=== PATIENT | female | born 1995 | race Two or more races ===

== ENCOUNTER 2021-06-02 18:16 | Inpatient (IN) ==
[2021-06-02 21:17] LABS: Hematocrit (blood only) 35.7 % (37-47); Hemoglobin 12.2 g/dL (12.0-16.0); Immature Granulocytes # (auto) 0.04 K/uL (0.00-0.02); Immature Granulocytes % (auto) 0.3 %; Lymphocytes # (auto) 1.28 K/uL (1.2-3.4); Lymphocytes % (auto) 8.4 %; Mean Corpuscular Hemoglobin 32.3 pg (25-34); Mean Corpuscular Hgb Conc 34.2 g/dL (32-36); Mean Corpuscular Volume 94.4 fL (80-100); Mean Platelet Volume 9.3 fL (7.4-10.4); Monocytes # (auto) 0.54 K/uL (0.11-0.59); Monocytes % (auto) 3.5 %; Neutrophils # (auto) 13.39 K/uL (1.4-6.5); Neutrophils % (auto) 87.8 %; Platelet Count 503 K/uL (130-400); RDW Coefficient of Variation 13.1 % (11.5-14.5); Red Blood Count 3.78 M/uL (4.2-5.4); White Blood Count 15.25 K/uL (4.8-10.8)
[2021-06-02 21:43] LABS: Alanine Aminotransferase 34 U/L (7-52); Albumin Level 3.6 gm/dl (3.4-5.0); Alkaline Phosphatase 299 U/L (34-104); Anion Gap 11 (3-11); Aspartate Aminotransferase 30 U/L (13-39); BUN Creatinine Ratio 24.6 (10-20); Bilirubin,Total 0.4 mg/dl (0.2-1.0); Blood Urea Nitrogen 16 mg/dl (6-23); Calcium 8.5 mg/dl (8.5-10.1); Carbon Dioxide 23 mmol/L (21-32); Chloride 101 mmol/L (98-107); Est GFR (Non-African American) 123.4 ml/min; Globulin 3.5 gm/dl (2.5-4.0); Glucose 102 mg/dl (70-99(Fasting)); Lipase 19 U/L (11-82); Potassium 3.3 mmol/L (3.5-5.1); Sodium 135 mmol/L (136-145); Total Protein 7.1 gm/dl (6.0-8.3)
[2021-06-02] MEDS ORDERED: ONDANSETRON INJ 2 MG/ML 2 ML VIAL IV STA (21:48)
[2021-06-02] MEDS ORDERED: MoRPHine SULFATE 4 MG/ML 1 ML CARP\\VIAL IV PRN (21:48)
--- NOTE | 2021-06-02 21:52 | Emergency Department Note ---
History of Present Illness General Chief complaint: Abdominal Pain Stated complaint: ABDOMINAL PAIN Time Seen by Provider: 06/02/21 21:39 History of Present Illness Maximum Pain Intensity: 5 This is a 26-year-old Portuguese-speaking female presenting to the emergency department for evaluation of lower abdominal pain that began yesterday. The discomfort is primarily suprapubic and nonradiating. She does not have fevers or chills. No chest pain, chest tightness, or shortness of breath. She denies chance of and is without history of abdominal surgery. She states she is on her menses. She rates her discomfort a 5/10. She last ate yesterday. She has not taken anything [id number] for symptoms. Home Medications Medication Instructions Recorded Confirmed Type No Known Home Medications 06/02/21 06/02/21 History Allergies Allergy/AdvReac Type Severity Reaction Status Date / Time No Known Allergies Allergy Verified 06/02/21 22:06 Past Med/Surg History Medical History (Updated 06/02/21 @ 23:53 by Jonathan Kerns PA-C) No chronic diseases present Surgical History (Updated 06/02/21 @ 21:51 by Jonathan Kerns PA-C) No significant past surgical history Social History Smoking Status: Never smoker Feels Safe at Home: Yes Review of Systems A total of 10 systems reviewed and were otherwise negative Physical Exam Vital Signs Vital Signs - 24 hr 06/02/21 18:38 Temperature 36.8 C Temperature Source Temporal Artery Scan Pulse Rate 87 Pulse Rhythm Regular Pulse Strength Normal Respiratory Rate 20 Respiratory Effort / Characteristics Non-Labored Spontaneous Respiratory Depth Normal Respiratory Pattern Regular Blood Pressure 127/86 Blood Pressure Mean 99 Blood Pressure Position Sitting Pulse Oximetry 100 Oxygen Delivery Method Room Air Sepsis Recent Fever Within 48 Hours No Sepsis New/Unexplained Change in Mental Status N/A Sepsis Action Taken by Nursing No Action Required VITALS: Vitals are noted on the nurse's note and reviewed by myself. Vital signs stable. GENERAL: Well-developed, well-nourished, female who appears mildly uncomfortable on presentation. HEART: Regular rate and rhythm without murmurs gallops or rubs. LUNGS: Clear to auscultation bilaterally without wheezes, rales or rhonchi. No retractions or accessory muscle use. ABDOMEN: Positive normal bowel sounds x 4. Soft with suprapubic tenderness. No rebound or guarding. No CVA tenderness. MUSCULOSKELETAL: No muscle atrophy, erythema, or edema noted. Full range of motion in all extremities. Course Administered Medications Ibuprofen (Ibuprofen 600 Mg Tab) 600 mg PO Q4H PRN PRN Reason: Pain/KIM/Cramping/Fever Stop: 07/02/21 23:34 Last Admin: 06/02/21 23:40 Dose: 600 mg Documented by: [id number] Discontinued Medications Oxytocin (Oxytocin 30 Units/500ml Nss) Confirm Administered Dose 30 units .ROUTE .STK-MED ONE Stop: 06/02/21 23:07 Last Admin: 06/02/21 23:36 Dose: 30 units Documented by: [id number] Medical Decision Making Differential Diagnosis Differential diagnosis: Etiologies such as biliary colic, cholecystitis, hepatitis, pancreatitis, cardiac disease, pancreatitis, gastritis, peptic ulcer disease, appendicitis, cystitis, diverticulitis, mesenteric ischemia, inflammatory bowel disease, ileus, bowel obstruction, testicular/adnexal torsion, aortic pathology, shingles, as well as others were considered Laboratory Data Result diagrams: 06/02/21 23:14 06/02/21 20:45 Lab Results 06/02/21 06/02/21 06/02/21 Range/Units 20:45 20:45 20:45 WBC 15.25 H (4.8-10.8) K/uL RBC 3.78 L (4.2-5.4) M/uL Hgb 12.2 (12.0-16.0) g/dL Hct 35.7 L (37-47) % MCV 94.4 (80-100) fL MCH 32.3 (25-34) pg MCHC 34.2 (32-36) g/dL RDW Std Deviation 45.0 (36.4-46.3) fL RDW Coeff of [place] 13.1 (11.5-14.5) % Plt Count 503 H (130-400) K/uL MPV 9.3 (7.4-10.4) fL Immature Gran % (Auto) 0.3 % Neut % (Auto) 87.8 % Lymph % (Auto) 8.4 % [place] % (Auto) 3.5 % Eos % (Auto) 0.0 % Baso % (Auto) 0.0 % Neut # (Auto) 13.39 H (1.4-6.5) K/uL Lymph # (Auto) 1.28 (1.2-3.4) K/uL [place] # (Auto) 0.54 (0.11-0.59) K/uL Eos # (Auto) 0.00 (0-0.5) K/uL Baso # (Auto) 0.00 (0-0.2) K/uL Immature Gran # (Auto) 0.04 H (0.00-0.02) K/uL Sodium 135 L (136-145) mmol/L Potassium 3.3 L (3.5-5.1) mmol/L Chloride 101 (98-107) mmol/L Carbon Dioxide 23 (21-32) mmol/L Anion Gap 11 (3-11) BUN 16 (6-23) mg/dl Creatinine 0.65 (0.6-1.2) mg/dl Est Cr Clr Drug Dosing Not Reportable Est GFR ( Amer) 143.0 ml/min Est GFR (Non-Af Amer) 123.4 ml/min BUN/Creatinine Ratio 24.6 H (10-20) Glucose 102 H (70-99(Fasting)) mg/dl Calcium 8.5 (8.5-10.1) mg/dl Total Bilirubin 0.4 (0.2-1.0) mg/dl AST 30 (13-39) U/L ALT 34 (7-52) U/L Alkaline Phosphatase 299 H (34-104) U/L Total Protein 7.1 (6.0-8.3) gm/dl Albumin 3.6 (3.4-5.0) gm/dl Globulin 3.5 (2.5-4.0) gm/dl Albumin/Globulin Ratio 1.0 (0.9-2) Lipase 19 (11-82) U/L HCG, Quant 66333 mIU/ml SARS-CoV-2, RNA, NAAT (NEGATIVE) 06/02/21 Range/Units 23:00 WBC (4.8-10.8) K/uL RBC (4.2-5.4) M/uL Hgb (12.0-16.0) g/dL Hct (37-47) % MCV (80-100) fL MCH (25-34) pg MCHC (32-36) g/dL RDW Std Deviation (36.4-46.3) fL RDW Coeff of [place] (11.5-14.5) % Plt Count (130-400) K/uL MPV (7.4-10.4) fL Immature Gran % (Auto) % Neut % (Auto) % Lymph % (Auto) % [place] % (Auto) % Eos % (Auto) % Baso % (Auto) % Neut # (Auto) (1.4-6.5) K/uL Lymph # (Auto) (1.2-3.4) K/uL [place] # (Auto) (0.11-0.59) K/uL Eos # (Auto) (0-0.5) K/uL Baso # (Auto) (0-0.2) K/uL Immature Gran # (Auto) (0.00-0.02) K/uL Sodium (136-145) mmol/L Potassium (3.5-5.1) mmol/L Chloride (98-107) mmol/L Carbon Dioxide (21-32) mmol/L Anion Gap (3-11) BUN (6-23) mg/dl Creatinine (0.6-1.2) mg/dl Est Cr Clr Drug Dosing Est GFR ( Amer) ml/min Est GFR (Non-Af Amer) ml/min BUN/Creatinine Ratio (10-20) Glucose (70-99(Fasting)) mg/dl Calcium (8.5-10.1) mg/dl Total Bilirubin (0.2-1.0) mg/dl AST (13-39) U/L ALT (7-52) U/L Alkaline Phosphatase (34-104) U/L Total Protein (6.0-8.3) gm/dl Albumin (3.4-5.0) gm/dl Globulin (2.5-4.0) gm/dl Albumin/Globulin Ratio (0.9-2) Lipase (11-82) U/L HCG, Quant mIU/ml SARS-CoV-2, RNA, NAAT NEGATIVE (NEGATIVE) MDM Narrative Physical exam and history were performed. Nursing notes, EMR, and Medication List were personally reviewed. Patient appears to have lower abdominal pain bringing her to the ER. The patient presents during a period of high ER volume and acuity with nursing protocol orders being initiated. Patient is with very low abdominal pain. She appears quite uncomfortable on exam. IV access has been established and labs obtained. She was given IV morphine and IV Zofran for comfort. The patient's blood work is as above and was reviewed. She does have a slightly elevated white blood cell count. She does not have significant anemia, bandemia, or gross electrolyte imbalance. Transaminases are not diagnostic. The patient was sent to CT scan for imaging prior to receiving a test result. On harmonic analyst film of the CT scan, it appears the patient is . She was taken directly to ultrasound which does confirm a 36-week with active labor. The case was discussed with the on-call SIX SIG[employer] PROJECT MANAGER, Dr. Ramirez, who recommends taking the patient immediately to the mother-baby unit. I did update the patient regarding her status. Please see S[employer] PROJECT MA[employer]GER dictation for further patient course, plan, and disposition. The chart was completed utilizing [employer] Speech Voice Recognition Software. Grammatical errors, random word insertions, pronoun errors, and incomplete sentences are an occasional consequence of this system due to software limitations, ambient noise, and hardware issues. Any formal questions or concerns about the content, text, or information contained within the body of this dictation should be directly addressed to the provider for clarification. . Impression & Plan Lower abdominal pain, and not yet delivered Discharge Plan Visit Data Chief Complaint: Abdominal Pain Stated Complaint: ABDOMINAL PAIN ED Provider: Denys Palomino ED Midlevel Provider: Jonathan Kerns Discharge Problem: Lower abdominal pain, and not yet delivered Patient Disposition: Admitted As Inpatient Discharge Instructions Interventions: ED Discharge Assessment Last Done: 06/02/21 23:04
[2021-06-02] MEDS ORDERED: SODIUM CHLORIDE 0.9% 1000ML 1,000 ML IV SCH (22:00)
[2021-06-02] MEDS ORDERED: PENICILLIN G POTASSIUM 6 MU in DEXTROSE 5% 250 ML IV STA (23:01)
[2021-06-02] MEDS ORDERED: OXYTOCIN 30 UNITS/500 ML BAG IV PRN ×2 (23:01→23:35)
[2021-06-02] MEDS ORDERED: LACTATED RINGER'S 1,000 ML IV PRN (23:01)
[2021-06-02] MEDS ORDERED: OXYTOCIN 30 UNITS/500ML NSS ONE (23:06)
[2021-06-02 23:33] LABS: Hematocrit (blood only) 35.2 % (37-47); Hemoglobin 12.1 g/dL (12.0-16.0); Mean Corpuscular Hemoglobin 32.4 pg (25-34); Mean Corpuscular Hgb Conc 34.4 g/dL (32-36); Mean Corpuscular Volume 94.1 fL (80-100); Mean Platelet Volume 9.1 fL (7.4-10.4); Platelet Count 441 K/uL (130-400); RDW Coefficient of Variation 13.1 % (11.5-14.5); Red Blood Count 3.74 M/uL (4.2-5.4); White Blood Count 19.58 K/uL (4.8-10.8)
[2021-06-02] MEDS ORDERED: DIPHTHERIA/TETANUS/PERTUSSIS 0.5 ML SYR/VIAL IM ONE (23:35)
[2021-06-02] MEDS ORDERED: IBUPROFEN 600 MG TAB PO PRN (23:35)
[2021-06-02] MEDS ORDERED: bisacodyL 10 MG SUPP PR PRN (23:35)
[2021-06-02] MEDS ORDERED: BENZOCAINE 20% AER SPR 82.5 GM CAN EXT PRN (23:35)
[2021-06-02] MEDS ORDERED: ACETAMINOPHEN 325 MG TAB PO PRN (23:35)
[2021-06-02] MEDS ORDERED: HYDROCORTISONE ACETATE 25 MG SUPP PR PRN (23:35)
--- NOTE | 2021-06-02 23:44 | Delivery Summary ---
Vaginal Delivery Summary Date of Service June 02, 2021 Vaginal Delivery Summary 26 F P0000 with no care seen in ER and found to be and sent up to L&D. She was fully dilated and ready to push with head at +3 station. over intact perineum with delivery of live male ROC with Apgars 8/9 weight pending. Cord blood obtained followed by spontaneous delivery of intact placenta. No tears. EBL 100 ml. Final sponge and instrument count are correct. Mom and baby stable.
[2021-06-03 00:22] LABS: Rubella IgG Ab Equivocal (Immune)
[2021-06-03] MEDS ORDERED: PENICILLIN G POTASSIUM 3 MU in DEXTROSE 5% 100 ML IV PRN (02:02)
[2021-06-03 07:05] LABS: Hemoglobin 10.3 g/dL (12.0-16.0); Mean Corpuscular Hemoglobin 32.5 pg (25-34); Mean Corpuscular Hgb Conc 34.3 g/dL (32-36); Mean Corpuscular Volume 94.6 fL (80-100); Mean Platelet Volume 8.9 fL (7.4-10.4); Platelet Count 406 K/uL (130-400); RDW Coefficient of Variation 13.1 % (11.5-14.5); RDW Standard Deviation 45.6 fL (36.4-46.3); Red Blood Count 3.17 M/uL (4.2-5.4); White Blood Count 21.31 K/uL (4.8-10.8)
--- NOTE | 2021-06-03 08:25 | Ultrasound Report ---
US OB limited CLINICAL HISTORY: Lower abdominal pain. . Vaginal bleeding. COMPARISON STUDY: No previous studies for comparison. TECHNIQUE: Transabdominal sonography of the fetus was performed. FINDINGS: Single viable intrauterine gestation is noted. heart rate is normal 137 bpm. Position is cephalic. Cervix was not well visualized on this exam. Please note that a dedicated anatomi tamie survey was not performed. Femur length measures 7.05 cm. This corresponds to estimate a gestation al age of 36 weeks and 1 day. Subjectively, the amount of amniotic fluid appears diminished. IMPRESSION: 1. Single viable intrauterine gestation with normal heart rate. 2. Cephalic position. 3. Amniotic fluid appears diminished. ACT 112: Negative or not required by law. Electronically signed by: Nando Diane M.D. 06/03/2021 8:24 AM
[2021-06-03] MEDS: PRENATAL VITAMIN 1 TAB PO SCH (09:14)
[2021-06-03] MEDS: DOCUSATE SODIUM 100 MG CAP PO SCH ×2 (09:14→20:47)
--- NOTE | 2021-06-03 09:16 | Obstetrical Progress Note ---
Date of Service June 03, 2021 Assessment & Plan Admission and Anticipated Discharge Date Admission Date: June 02, 2021 Subjective Patient is seen and examined. She feels well, no complaints. Ambulating without dizziness Voiding without difficulty Tolerating regular diet with out N&V Bleeding is minimal No fever/ chills/ CP/ SOB/ N&V/ Leg pain Breast feeding without problems Vital Signs Temp Pulse Pulse Resp BP BP Pulse Ox 06/03/21 07:30 37.1 C 79 18 101/62 97 06/03/21 02:20 36.8 C 70 16 107/67 06/03/21 02:00 70 106/58 L 06/03/21 01:45 70 18 106/58 L 06/03/21 01:31 93 H 118/60 06/03/21 01:15 75 18 103/55 L 06/03/21 01:00 76 101/71 06/03/21 00:45 65 18 110/67 06/03/21 00:30 62 18 116/67 06/03/21 00:15 68 18 115/68 06/03/21 00:00 64 18 121/71 06/02/21 23:45 68 18 133/82 06/02/21 23:30 68 134/83 Lab Results 06/02/21 06/02/21 06/02/21 Range/Units 20:45 20:45 20:45 WBC 15.25 H (4.8-10.8) K/uL RBC 3.78 L (4.2-5.4) M/uL Hgb 12.2 (12.0-16.0) g/dL Hct 35.7 L (37-47) % MCV 94.4 (80-100) fL MCH 32.3 (25-34) pg MCHC 34.2 (32-36) g/dL RDW Std Deviation 45.0 (36.4-46.3) fL RDW Coeff of [place] 13.1 (11.5-14.5) % Plt Count 503 H (130-400) K/uL MPV 9.3 (7.4-10.4) fL Immature Gran % (Auto) 0.3 % Neut % (Auto) 87.8 % Lymph % (Auto) 8.4 % [place] % (Auto) 3.5 % Eos % (Auto) 0.0 % Baso % (Auto) 0.0 % Neut # (Auto) 13.39 H (1.4-6.5) K/uL Lymph # (Auto) 1.28 (1.2-3.4) K/uL [place] # (Auto) 0.54 (0.11-0.59) K/uL Eos # (Auto) 0.00 (0-0.5) K/uL Baso # (Auto) 0.00 (0-0.2) K/uL Immature Gran # (Auto) 0.04 H (0.00-0.02) K/uL Sodium 135 L (136-145) mmol/L Potassium 3.3 L (3.5-5.1) mmol/L Chloride 101 (98-107) mmol/L Carbon Dioxide 23 (21-32) mmol/L Anion Gap 11 (3-11) BUN 16 (6-23) mg/dl Creatinine 0.65 (0.6-1.2) mg/dl Est Cr Clr Drug Dosing Not Reportable Est GFR ( Amer) 143.0 ml/min Est GFR (Non-Af Amer) 123.4 ml/min BUN/Creatinine Ratio 24.6 H (10-20) Glucose 102 H (70-99(Fasting)) mg/dl Calcium 8.5 (8.5-10.1) mg/dl Total Bilirubin 0.4 (0.2-1.0) mg/dl AST 30 (13-39) U/L ALT 34 (7-52) U/L Alkaline Phosphatase 299 H (34-104) U/L Total Protein 7.1 (6.0-8.3) gm/dl Albumin 3.6 (3.4-5.0) gm/dl Globulin 3.5 (2.5-4.0) gm/dl Albumin/Globulin Ratio 1.0 (0.9-2) Lipase 19 (11-82) U/L HCG, Quant 65142 mIU/ml Hep Bs Antigen (Neg) Rubella IgG Antibody (Immune) Rubella IgG Ab Index IU/mL SARS-CoV-2, RNA, NAAT (NEGATIVE) Blood Type 06/02/21 06/02/21 06/02/21 Range/Units 23:00 23:14 23:14 WBC 19.58 H (4.8-10.8) K/uL RBC 3.74 L (4.2-5.4) M/uL Hgb 12.1 (12.0-16.0) g/dL Hct 35.2 L (37-47) % MCV 94.1 (80-100) fL MCH 32.4 (25-34) pg MCHC 34.4 (32-36) g/dL RDW Std Deviation 45.0 (36.4-46.3) fL RDW Coeff of [place] 13.1 (11.5-14.5) % Plt Count 441 H (130-400) K/uL MPV 9.1 (7.4-10.4) fL Immature Gran % (Auto) % Neut % (Auto) % Lymph % (Auto) % [place] % (Auto) % Eos % (Auto) % Baso % (Auto) % Neut # (Auto) (1.4-6.5) K/uL Lymph # (Auto) (1.2-3.4) K/uL [place] # (Auto) (0.11-0.59) K/uL Eos # (Auto) (0-0.5) K/uL Baso # (Auto) (0-0.2) K/uL Immature Gran # (Auto) (0.00-0.02) K/uL Sodium (136-145) mmol/L Potassium (3.5-5.1) mmol/L Chloride (98-107) mmol/L Carbon Dioxide (21-32) mmol/L Anion Gap (3-11) BUN (6-23) mg/dl Creatinine (0.6-1.2) mg/dl Est Cr Clr Drug Dosing Est GFR ( Amer) ml/min Est GFR (Non-Af Amer) ml/min BUN/Creatinine Ratio (10-20) Glucose (70-99(Fasting)) mg/dl Calcium (8.5-10.1) mg/dl Total Bilirubin (0.2-1.0) mg/dl AST (13-39) U/L ALT (7-52) U/L Alkaline Phosphatase (34-104) U/L Total Protein (6.0-8.3) gm/dl Albumin (3.4-5.0) gm/dl Globulin (2.5-4.0) gm/dl Albumin/Globulin Ratio (0.9-2) Lipase (11-82) U/L HCG, Quant mIU/ml Hep Bs Antigen (Neg) Rubella IgG Antibody (Immune) Rubella IgG Ab Index IU/mL SARS-CoV-2, RNA, NAAT NEGATIVE (NEGATIVE) Blood Type O Positive 06/02/21 06/02/21 06/03/21 Range/Units 23:14 23:14 06:53 WBC 21.31 H (4.8-10.8) K/uL RBC 3.17 L (4.2-5.4) M/uL Hgb 10.3 L (12.0-16.0) g/dL Hct 30.0 L (37-47) % MCV 94.6 (80-100) fL MCH 32.5 (25-34) pg MCHC 34.3 (32-36) g/dL RDW Std Deviation 45.6 (36.4-46.3) fL RDW Coeff of [place] 13.1 (11.5-14.5) % Plt Count 406 H (130-400) K/uL MPV 8.9 (7.4-10.4) fL Immature Gran % (Auto) % Neut % (Auto) % Lymph % (Auto) % [place] % (Auto) % Eos % (Auto) % Baso % (Auto) % Neut # (Auto) (1.4-6.5) K/uL Lymph # (Auto) (1.2-3.4) K/uL [place] # (Auto) (0.11-0.59) K/uL Eos # (Auto) (0-0.5) K/uL Baso # (Auto) (0-0.2) K/uL Immature Gran # (Auto) (0.00-0.02) K/uL Sodium (136-145) mmol/L Potassium (3.5-5.1) mmol/L Chloride (98-107) mmol/L Carbon Dioxide (21-32) mmol/L Anion Gap (3-11) BUN (6-23) mg/dl Creatinine (0.6-1.2) mg/dl Est Cr Clr Drug Dosing Est GFR ( Amer) ml/min Est GFR (Non-Af Amer) ml/min BUN/Creatinine Ratio (10-20) Glucose (70-99(Fasting)) mg/dl Calcium (8.5-10.1) mg/dl Total Bilirubin (0.2-1.0) mg/dl AST (13-39) U/L ALT (7-52) U/L Alkaline Phosphatase (34-104) U/L Total Protein (6.0-8.3) gm/dl Albumin (3.4-5.0) gm/dl Globulin (2.5-4.0) gm/dl Albumin/Globulin Ratio (0.9-2) Lipase (11-82) U/L HCG, Quant mIU/ml Hep Bs Antigen Neg (Neg) Rubella IgG Antibody Equivocal L (Immune) Rubella IgG Ab Index 12.4 IU/mL SARS-CoV-2, RNA, NAAT (NEGATIVE) Blood Type PE: General: Alert, orientedx3, NAD Abd: soft, NT, fundus firm, below Umbilicus Perineum intact, Lochia rubra minimal Ext; NT, no edema AP: 26 yo s/p , ppd# 1, no care VSS Afebrile doing well Continue routine care All questions were answered MMR Social service consultation Results & Data ([facility]) Vital Signs (Past 12 Hours) Vital Signs Temp Pulse Pulse Resp BP BP Pulse Ox 06/03/21 07:30 37.1 C 79 18 101/62 97 06/03/21 02:20 36.8 C 70 16 107/67 06/03/21 02:00 70 106/58 L 06/03/21 01:45 70 18 106/58 L 06/03/21 01:31 93 H 118/60 06/03/21 01:15 75 18 103/55 L 06/03/21 01:00 76 101/71 06/03/21 00:45 65 18 110/67 06/03/21 00:30 62 18 116/67 06/03/21 00:15 68 18 115/68 06/03/21 00:00 64 18 121/71 06/02/21 23:45 68 18 133/82 06/02/21 23:30 68 134/83
[2021-06-03] MEDS ORDERED: bisacodyL 5 MG TABEC PO SCH (20:00)
[2021-06-04 06:22] LABS: Basophils # (auto) 0.01 K/uL (0-0.2); Basophils % (auto) 0.1 %; Eosinophils # (auto) 0.03 K/uL (0-0.5); Eosinophils % (auto) 0.2 %; Hematocrit (blood only) 30.3 % (37-47); Hemoglobin 10.1 g/dL (12.0-16.0); Immature Granulocytes # (auto) 0.05 K/uL (0.00-0.02); Immature Granulocytes % (auto) 0.4 %; Lymphocytes # (auto) 2.91 K/uL (1.2-3.4); Mean Corpuscular Hemoglobin 32.5 pg (25-34); Mean Corpuscular Hgb Conc 33.3 g/dL (32-36); Mean Corpuscular Volume 97.4 fL (80-100); Mean Platelet Volume 8.7 fL (7.4-10.4); Monocytes # (auto) 0.79 K/uL (0.11-0.59); Monocytes % (auto) 5.7 %; Neutrophils # (auto) 10.06 K/uL (1.4-6.5); Neutrophils % (auto) 72.6 %; Platelet Count 444 K/uL (130-400); RDW Coefficient of Variation 13.8 % (11.5-14.5); RDW Standard Deviation 48.7 fL (36.4-46.3); Red Blood Count 3.11 M/uL (4.2-5.4); White Blood Count 13.85 K/uL (4.8-10.8)
[2021-06-04] MEDS: PRENATAL VITAMIN 1 TAB PO SCH (09:05)
[2021-06-04] MEDS: DOCUSATE SODIUM 100 MG CAP PO SCH (09:05)
--- NOTE | 2021-06-04 09:32 | Obstetrical Progress Note ---
Date of Service June 04, 2021 Subjective Ambulation: ambulating normally Voiding: no voiding problems Passing Gas:: Yes Diet Tolerance:: regular diet Lochia:: Small Feeding Type:: breast feeding Current Pain Level(1-10): 0 Physical Exam Constitutional WD/WN, vitals as above comfortable abdomen soft and non-tender fundus firm no edema neg Paul's for d/c home f/u in clinic Results & Data ([facility]) Vital Signs (Past 12 Hours) Vital Signs Temp Pulse Resp BP 06/03/21 23:35 36.6 C 63 18 103/62 Laboratory Results Laboratory Results - last 72 hr 06/02/21 06/02/21 06/02/21 20:45 20:45 20:45 WBC 15.25 H RBC 3.78 L Hgb 12.2 Hct 35.7 L MCV 94.4 MCH 32.3 MCHC 34.2 RDW Std Deviation 45.0 RDW Coeff of [place] 13.1 Plt Count 503 H MPV 9.3 Immature Gran % (Auto) 0.3 Neut % (Auto) 87.8 Lymph % (Auto) 8.4 [place] % (Auto) 3.5 Eos % (Auto) 0.0 Baso % (Auto) 0.0 Neut # (Auto) 13.39 H Lymph # (Auto) 1.28 [place] # (Auto) 0.54 Eos # (Auto) 0.00 Baso # (Auto) 0.00 Immature Gran # (Auto) 0.04 H Sodium 135 L Potassium 3.3 L Chloride 101 Carbon Dioxide 23 Anion Gap 11 BUN 16 Creatinine 0.65 Est Cr Clr Drug Dosing Not Reportable Est GFR ( Amer) 143.0 Est GFR (Non-Af Amer) 123.4 BUN/Creatinine Ratio 24.6 H Glucose 102 H Calcium 8.5 Total Bilirubin 0.4 AST 30 ALT 34 Alkaline Phosphatase 299 H Total Protein 7.1 Albumin 3.6 Globulin 3.5 Albumin/Globulin Ratio 1.0 Lipase 19 HCG, Quant 83327 RPR Hep Bs Antigen HIV 1&2 Ab/P24 Ag 4thGn Rubella IgG Antibody Rubella IgG Ab Index SARS-CoV-2, RNA, NAAT Blood Type 06/02/21 06/02/21 06/02/21 23:00 23:14 23:14 WBC 19.58 H RBC 3.74 L Hgb 12.1 Hct 35.2 L MCV 94.1 MCH 32.4 MCHC 34.4 RDW Std Deviation 45.0 RDW Coeff of [place] 13.1 Plt Count 441 H MPV 9.1 Immature Gran % (Auto) Neut % (Auto) Lymph % (Auto) [place] % (Auto) Eos % (Auto) Baso % (Auto) Neut # (Auto) Lymph # (Auto) [place] # (Auto) Eos # (Auto) Baso # (Auto) Immature Gran # (Auto) Sodium Potassium Chloride Carbon Dioxide Anion Gap BUN Creatinine Est Cr Clr Drug Dosing Est GFR ( Amer) Est GFR (Non-Af Amer) BUN/Creatinine Ratio Glucose Calcium Total Bilirubin AST ALT Alkaline Phosphatase Total Protein Albumin Globulin Albumin/Globulin Ratio Lipase HCG, Quant RPR Hep Bs Antigen HIV 1&2 Ab/P24 Ag 4thGn Rubella IgG Antibody Rubella IgG Ab Index SARS-CoV-2, RNA, NAAT NEGATIVE Blood Type O Positive 06/02/21 06/02/21 06/02/21 23:14 23:14 23:14 WBC RBC Hgb Hct MCV MCH MCHC RDW Std Deviation RDW Coeff of [place] Plt Count MPV Immature Gran % (Auto) Neut % (Auto) Lymph % (Auto) [place] % (Auto) Eos % (Auto) Baso % (Auto) Neut # (Auto) Lymph # (Auto) [place] # (Auto) Eos # (Auto) Baso # (Auto) Immature Gran # (Auto) Sodium Potassium Chloride Carbon Dioxide Anion Gap BUN Creatinine Est Cr Clr Drug Dosing Est GFR ( Amer) Est GFR (Non-Af Amer) BUN/Creatinine Ratio Glucose Calcium Total Bilirubin AST ALT Alkaline Phosphatase Total Protein Albumin Globulin Albumin/Globulin Ratio Lipase HCG, Quant RPR Hep Bs Antigen Neg HIV 1&2 Ab/P24 Ag 4thGn Neg Rubella IgG Antibody Equivocal L Rubella IgG Ab Index 12.4 SARS-CoV-2, RNA, NAAT Blood Type 06/02/21 06/03/21 06/04/21 23:14 06:53 06:04 WBC 21.31 H 13.85 H RBC 3.17 L 3.11 L Hgb 10.3 L 10.1 L Hct 30.0 L 30.3 L MCV 94.6 97.4 MCH 32.5 32.5 MCHC 34.3 33.3 RDW Std Deviation 45.6 48.7 H RDW Coeff of [place] 13.1 13.8 Plt Count 406 H 444 H MPV 8.9 8.7 Immature Gran % (Auto) 0.4 Neut % (Auto) 72.6 Lymph % (Auto) 21.0 [place] % (Auto) 5.7 Eos % (Auto) 0.2 Baso % (Auto) 0.1 Neut # (Auto) 10.06 H Lymph # (Auto) 2.91 [place] # (Auto) 0.79 H Eos # (Auto) 0.03 Baso # (Auto) 0.01 Immature Gran # (Auto) 0.05 H Sodium Potassium Chloride Carbon Dioxide Anion Gap BUN Creatinine Est Cr Clr Drug Dosing Est GFR ( Amer) Est GFR (Non-Af Amer) BUN/Creatinine Ratio Glucose Calcium Total Bilirubin AST ALT Alkaline Phosphatase Total Protein Albumin Globulin Albumin/Globulin Ratio Lipase HCG, Quant RPR Nonreactive Hep Bs Antigen HIV 1&2 Ab/P24 Ag 4thGn Rubella IgG Antibody Rubella IgG Ab Index SARS-CoV-2, RNA, NAAT Blood Type
[2021-06-04] MEDS ORDERED: MEASLES, MUMPS & RUBELLA VIRUS VIAL SQ ONE (09:55)
--- NOTE | 2021-06-12 15:50 | History & Physical Report ---
Date of Service June 12, 2021 Assessment & Plan (1) and not yet delivered: Plan: DELIVERY IMMINENT ON ADMISSION (2) Lower abdominal pain: Plan: ADMIT AND DELIVER Admission and Anticipated Discharge Date Admission Date: June 02, 2021 History of Present Illness Chief Complaint: abdominal pain/ in labor Primary Care Provider: NO PCP Allergies Allergy/AdvReac Type Severity Reaction Status Date / Time No Known Allergies Allergy Verified 06/02/21 22:06 Home Medications Medication Instructions Recorded Confirmed Type ibuprofen 600 mg tablet 600 mg PO Q4H PRN #30 tab 06/04/21 Rx amoxicillin 875 mg-potassium 1 tab PO BID #48 tab 06/10/21 Rx clavulanate 125 mg tablet Patient History Medical History No chronic diseases present Surgical History No significant past surgical history Social History Smoking Status: Never smoker Hx Alcohol Use: No Hx Substance Use: No Preferred Language: Kinyarwanda Communication Ability: Effective 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 Review of Systems All systems reviewed & are unremarkable except as noted in HPI & below Physical Exam Constitutional: WD/WN, vitals as above + acute distress Eyes: PERRL, conjunctivae normal, anicteric sclerae Respiratory: normal respiratory effort, lungs clear to auscultation Cardiovascular: RRR, no murmur, no edema Skin: no rashes, warm and dry Psychiatric: A+Ox3, euthymic affect Genitourinary: no vaginal lesions, no adnexal mass Manual OB Exam: + cervical dilation 10 cm, + cervical effacement 100% and + station + 3 Results & Data ([facility]) Vital Signs (Past 12 Hours) 06/02/21 06/02/21 06/02/21 20:45 20:45 20:45 WBC 15.25 H RBC 3.78 L Hgb 12.2 Hct 35.7 L MCV 94.4 MCH 32.3 MCHC 34.2 RDW Std Deviation 45.0 RDW Coeff of [place] 13.1 Plt Count 503 H MPV 9.3 Immature Gran % (Auto) 0.3 Neut % (Auto) 87.8 Lymph % (Auto) 8.4 [place] % (Auto) 3.5 Eos % (Auto) 0.0 Baso % (Auto) 0.0 Neut # (Auto) 13.39 H Lymph # (Auto) 1.28 [place] # (Auto) 0.54 Eos # (Auto) 0.00 Baso # (Auto) 0.00 Immature Gran # (Auto) 0.04 H Sodium 135 L Potassium 3.3 L Chloride 101 Carbon Dioxide 23 Anion Gap 11 BUN 16 Creatinine 0.65 Est Cr Clr Drug Dosing Not Reportable Est GFR ( Amer) 143.0 Est GFR (Non-Af Amer) 123.4 BUN/Creatinine Ratio 24.6 H Glucose 102 H Calcium 8.5 Total Bilirubin 0.4 AST 30 ALT 34 Alkaline Phosphatase 299 H Total Protein 7.1 Albumin 3.6 Globulin 3.5 Albumin/Globulin Ratio 1.0 Lipase 19 HCG, Quant 95456 RPR Hep Bs Antigen HIV 1&2 Ab/P24 Ag 4thGn Rubella IgG Antibody Rubella IgG Ab Index SARS-CoV-2, RNA, NAAT Blood Type 06/02/21 06/02/21 06/02/21 23:00 23:14 23:14 WBC 19.58 H RBC 3.74 L Hgb 12.1 Hct 35.2 L MCV 94.1 MCH 32.4 MCHC 34.4 RDW Std Deviation 45.0 RDW Coeff of [place] 13.1 Plt Count 441 H MPV 9.1 Immature Gran % (Auto) Neut % (Auto) Lymph % (Auto) [place] % (Auto) Eos % (Auto) Baso % (Auto) Neut # (Auto) Lymph # (Auto) [place] # (Auto) Eos # (Auto) Baso # (Auto) Immature Gran # (Auto) Sodium Potassium Chloride Carbon Dioxide Anion Gap BUN Creatinine Est Cr Clr Drug Dosing Est GFR ( Amer) Est GFR (Non-Af Amer) BUN/Creatinine Ratio Glucose Calcium Total Bilirubin AST ALT Alkaline Phosphatase Total Protein Albumin Globulin Albumin/Globulin Ratio Lipase HCG, Quant RPR Hep Bs Antigen HIV 1&2 Ab/P24 Ag 4thGn Rubella IgG Antibody Rubella IgG Ab Index SARS-CoV-2, RNA, NAAT NEGATIVE Blood Type O Positive 06/02/21 06/02/21 06/02/21 23:14 23:14 23:14 WBC RBC Hgb Hct MCV MCH MCHC RDW Std Deviation RDW Coeff of [place] Plt Count MPV Immature Gran % (Auto) Neut % (Auto) Lymph % (Auto) [place] % (Auto) Eos % (Auto) Baso % (Auto) Neut # (Auto) Lymph # (Auto) [place] # (Auto) Eos # (Auto) Baso # (Auto) Immature Gran # (Auto) Sodium Potassium Chloride Carbon Dioxide Anion Gap BUN Creatinine Est Cr Clr Drug Dosing Est GFR ( Amer) Est GFR (Non-Af Amer) BUN/Creatinine Ratio Glucose Calcium Total Bilirubin AST ALT Alkaline Phosphatase Total Protein Albumin Globulin Albumin/Globulin Ratio Lipase HCG, Quant RPR Hep Bs Antigen Neg HIV 1&2 Ab/P24 Ag 4thGn Neg Rubella IgG Antibody Equivocal L Rubella IgG Ab Index 12.4 SARS-CoV-2, RNA, NAAT Blood Type 06/02/21 06/03/21 06/04/21 23:14 06:53 06:04 WBC 21.31 H 13.85 H RBC 3.17 L 3.11 L Hgb 10.3 L 10.1 L Hct 30.0 L 30.3 L MCV 94.6 97.4 MCH 32.5 32.5 MCHC 34.3 33.3 RDW Std Deviation 45.6 48.7 H RDW Coeff of [place] 13.1 13.8 Plt Count 406 H 444 H MPV 8.9 8.7 Immature Gran % (Auto) 0.4 Neut % (Auto) 72.6 Lymph % (Auto) 21.0 [place] % (Auto) 5.7 Eos % (Auto) 0.2 Baso % (Auto) 0.1 Neut # (Auto) 10.06 H Lymph # (Auto) 2.91 [place] # (Auto) 0.79 H Eos # (Auto) 0.03 Baso # (Auto) 0.01 Immature Gran # (Auto) 0.05 H Sodium Potassium Chloride Carbon Dioxide Anion Gap BUN Creatinine Est Cr Clr Drug Dosing Est GFR ( Amer) Est GFR (Non-Af Amer) BUN/Creatinine Ratio Glucose Calcium Total Bilirubin AST ALT Alkaline Phosphatase Total Protein Albumin Globulin Albumin/Globulin Ratio Lipase HCG, Quant RPR Nonreactive Hep Bs Antigen HIV 1&2 Ab/P24 Ag 4thGn Rubella IgG Antibody Rubella IgG Ab Index SARS-CoV-2, RNA, NAAT Blood Type Monitoring External Monitor Cat 1
== END 2021-06-04 15:35 | disposition home or self-care (01) | DRG 807 ==
LOC: 4S1 18:16 → ED 18:16 → 4S1 23:04 → 4S2 06-03 02:32

== ENCOUNTER 2025-02-13 23:22 | Inpatient (IN) ==
[2025-02-13 23:35] VITALS: TEMP 97.7
[2025-02-14 00:20] LABS: Hematocrit (blood only) 35.1 % (37.0-47.0); Hemoglobin 12.4 g/dl (12.0-16.0); Immature Granulocytes # (auto) 0.06 K/uL (0.01-0.20); Immature Granulocytes % (auto) 0.3 %; Mean Corpuscular Hemoglobin 32.5 pg (25.0-34.0); Mean Corpuscular Volume 92.1 fL (80.0-100.0); Platelet Count 475 K/uL (130-400); RDW Standard Deviation 41.1 fL (36.4-46.3); Red Blood Count 3.81 M/uL (4.20-5.40); White Blood Count 17.21 K/ul (4.8-10.8)
[2025-02-14 00:28] LABS: Alanine Aminotransferase 47 U/L (7-52); Albumin Globulin Ratio 1.1 (0.9-2); Albumin Level 4.2 gm/dl (3.4-5.0); Alkaline Phosphatase 87 U/L (34-104); Anion Gap 8 (3-11); Bilirubin,Total 0.4 mg/dl (0.2-1.0); Blood Urea Nitrogen 11 mg/dl (6-23); Calcium 9.9 mg/dl (8.6-10.3); Carbon Dioxide 26 mmol/L (21-32); Chloride 103 mmol/L (98-107); Globulin 3.7 gm/dl (2.5-4.0); Glucose 139 mg/dl (70-99(Fasting)); Lipase 26 U/L (11-82); Potassium 3.2 mmol/L (3.5-5.1); Sodium 137 mmol/L (136-145); Total Protein 7.9 gm/dl (6.0-8.3)
--- NOTE | 2025-02-14 01:27 | Emergency Department Note ---
Impression & Plan Cholelithiasis, Biliary colic admit to the [facility] for MRCP ED Provider Note NAME: TONI ESTRADA AGE: 28 SEX: Female INFORMANT: Patient ED PROVIDER(S): Ann Means DO CHIEF COMPLAINT: Epigastric abdominal pain PLAN: Disposition: admit to the [facility] MEDICAL DECISION MAKING: This is a 28-year-old female patient who is Chinese-speaking and communicates with me through her friend who is an hourly sign language interpreter. Patient had an episode at 10 PM of severe epigastric pain which lasted for approximately 30 minutes. The pain subsided for a couple minutes then return for only a couple minutes and is now gone. Patient describes a similar episode last spring for which she did not seek medical attention. laboratory studies reveal white blood cell count of 17.2. H&H were stable. Potassium was slightly low at 3.2. Glucose was 139. D-dimer was negative. AST was elevated at 71 Chest x-ray was unremarkable. Ultrasound showed evidence of cholelithiasis with no convincing signs of cholecystitis. However, there was a stone in the neck of the gallbladder. I reviewed these findings with the patient and her with the help of the friend who was translating. [facility] will evaluate for further inpatient care and MRCP testing. Care/management discussed with: finance effectiveness manager and [facility] Triage Nursing notes: reviewed and agree With them. Vital Signs: reviewed and remarkable for tachycardia Additional History obtained from: patient's is at the bedside Differential Diagnosis: GERD, esophagitis, pancreatitis, cholecystitis, choledocholithiasis. Diagnostics, independently interpreted by me: ECG: Sinus tachycardia at a rate of [address] segment lobation or signs of ischemia. There is no ectopy. Cardiac Monitoring: Normal sinus rhythm at a rate of 94 Imaging studies: obstruction series: moderate colonic fecal retention with no free air or pulmonary findings as per my independent interpretation Right upper quadrant ultrasound: as per [facility] HPI: 28 year old Female arrives for evaluation of episode of severe epigastric pain. patient who is Chinese-speaking and communicates with me through her friend who is an hourly sign language interpreter. Patient had an episode at 10 PM of severe epigastric pain which lasted for approximately 30 minutes. The pain subsided for a couple minutes then return for only a couple minutes and is now gone. Patient describes a similar episode last spring for which she did not seek medical attention. 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 Pupils are equal, round, and reactive to light. Extraocular eye muscles are intact, and sclera are anicteric. Nose - moist nasal mucosa without discharge. Mouth - moist buccal mucosa. Oropharynx is nonerythematous and there is no tonsillar exudate or edema noted. Neck: Supple; no JVD, nuchal rigidity, cervical lymphadenopathy, or auscultated bruits. Heart: Regular rate and rhythm. There is a normal S1 and S2 with no murmurs, clicks, or gallops appreciated. Lungs: Clear to auscultation bilaterally with no wheezes, rales, or rhonchi. Abdomen: Soft, Moderate tenderness to palpation in the epigastrium and right upper quadrant,, nondistended, with good bowel sounds. There are no palpable pulsatile masses or hepatosplenomegaly. There is no guarding, rigidity, or rebound noted. Extremities: No evidence of cyanosis, clubbing, or edema. There are easily palpable peripheral pulses. Skin: warm and dry with good turgor and no rashes. emergency department course: The patient was evaluated in room B-6. A complete history and physical was performed. IV lock was initiated and labs were drawn as above. Portable chest x-ray was performed. Patient went for right upper quadrant ultrasound. I discussed the case with the [facility] Hospitalist and he will evaluate for further inpatient care. Past Med/Surg History Problem List (Updated 02/14/25 @ 06:51 by Ann Means DO) Cholelithiasis (Acute) Biliary colic (Acute) Social History Preferred Language: Chinese Communication Tools: IPad Feels Safe at Home: Yes Allergies Allergies Allergy/AdvReac Type Severity Reaction Status Date / Time No Known Allergies Allergy Verified 02/14/25 00:21 Home Meds Home Medications Medication Instructions Recorded Confirmed No Known Home Medications 02/14/25 02/14/25 Results & Data (ED) Vital Signs Vital Signs - 24 hr 02/13/25 23:28 02/13/25 23:35 02/13/25 23:35 Temperature 36.5 C Temperature Source Temporal Artery Scan Pulse Rate 108 H Pulse Rate from SpO2 Sensor Respiratory Rate 18 Respiratory Effort / Characteristics Non-Labored Spontaneous Non-Labored Respiratory Depth Normal Normal Blood Pressure 138/78 Blood Pressure Mean 98 Pulse Oximetry 100 Oxygen Delivery Method Room Air Room Air Sepsis Recent Fever Within 48 Hours No Sepsis New/Unexplained Change in Mental Status No Sepsis Action Taken by Nursing No Action Required 02/13/25 23:51 02/13/25 23:53 02/14/25 00:00 Temperature Temperature Source Pulse Rate 101 H Pulse Rate from SpO2 Sensor Respiratory Rate 18 Respiratory Effort / Characteristics Respiratory Depth Blood Pressure 125/76 113/76 Blood Pressure Mean 87 91 Pulse Oximetry Oxygen Delivery Method Sepsis Recent Fever Within 48 Hours Sepsis New/Unexplained Change in Mental Status Sepsis Action Taken by Nursing 02/14/25 00:00 02/14/25 00:01 02/14/25 00:03 Temperature Temperature Source Pulse Rate 101 H Pulse Rate from SpO2 Sensor Respiratory Rate Respiratory Effort / Characteristics Respiratory Depth Blood Pressure 113/76 Blood Pressure Mean 91 Pulse Oximetry Oxygen Delivery Method Room Air Sepsis Recent Fever Within 48 Hours Sepsis New/Unexplained Change in Mental Status Sepsis Action Taken by Nursing 02/14/25 00:21 02/14/25 00:30 02/14/25 00:30 Temperature Temperature Source Pulse Rate 94 H Pulse Rate from SpO2 Sensor Respiratory Rate 19 Respiratory Effort / Characteristics Respiratory Depth Blood Pressure 146/101 H 146/101 H Blood Pressure Mean 110 110 Pulse Oximetry Oxygen Delivery Method Sepsis Recent Fever Within 48 Hours Sepsis New/Unexplained Change in Mental Status Sepsis Action Taken by Nursing 02/14/25 00:45 02/14/25 00:51 02/14/25 01:00 Temperature Temperature Source Pulse Rate 85 87 94 H Pulse Rate from SpO2 Sensor 85 86 91 H Respiratory Rate 19 21 16 Respiratory Effort / Characteristics Respiratory Depth Blood Pressure Blood Pressure Mean Pulse Oximetry 98 99 99 Oxygen Delivery Method Sepsis Recent Fever Within 48 Hours Sepsis New/Unexplained Change in Mental Status Sepsis Action Taken by Nursing 02/14/25 01:00 02/14/25 01:00 02/14/25 01:00 Temperature Temperature Source Pulse Rate Pulse Rate from SpO2 Sensor Respiratory Rate Respiratory Effort / Characteristics Respiratory Depth Blood Pressure 118/84 118/84 118/84 Blood Pressure Mean 95 95 95 Pulse Oximetry Oxygen Delivery Method Sepsis Recent Fever Within 48 Hours Sepsis New/Unexplained Change in Mental Status Sepsis Action Taken by Nursing 02/14/25 01:21 02/14/25 01:23 02/14/25 01:24 Temperature Temperature Source Pulse Rate 96 H 87 Pulse Rate from SpO2 Sensor 95 H 89 Respiratory Rate 15 19 Respiratory Effort / Characteristics Non-Labored Respiratory Depth Normal Blood Pressure Blood Pressure Mean Pulse Oximetry 98 99 Oxygen Delivery Method Sepsis Recent Fever Within 48 Hours Sepsis New/Unexplained Change in Mental Status Sepsis Action Taken by Nursing 02/14/25 01:30 02/14/25 01:30 02/14/25 01:30 Temperature Temperature Source Pulse Rate Pulse Rate from SpO2 Sensor Respiratory Rate Respiratory Effort / Characteristics Respiratory Depth Blood Pressure 133/86 133/86 133/86 Blood Pressure Mean 100 100 100 Pulse Oximetry Oxygen Delivery Method Sepsis Recent Fever Within 48 Hours Sepsis New/Unexplained Change in Mental Status Sepsis Action Taken by Nursing 02/14/25 01:54 02/14/25 02:09 02/14/25 02:12 Temperature Temperature Source Pulse Rate 96 H 92 H 88 Pulse Rate from SpO2 Sensor 88 Respiratory Rate 15 19 18 Respiratory Effort / Characteristics Respiratory Depth Blood Pressure Blood Pressure Mean Pulse Oximetry 99 Oxygen Delivery Method Sepsis Recent Fever Within 48 Hours Sepsis New/Unexplained Change in Mental Status Sepsis Action Taken by Nursing 02/14/25 02:27 02/14/25 02:33 02/14/25 02:45 Temperature Temperature Source Pulse Rate 82 88 81 Pulse Rate from SpO2 Sensor 82 88 82 Respiratory Rate 20 16 16 Respiratory Effort / Characteristics Respiratory Depth Blood Pressure Blood Pressure Mean Pulse Oximetry 98 98 98 Oxygen Delivery Method Sepsis Recent Fever Within 48 Hours Sepsis New/Unexplained Change in Mental Status Sepsis Action Taken by Nursing 02/14/25 02:51 02/14/25 03:00 02/14/25 03:06 Temperature Temperature Source Pulse Rate 80 82 Pulse Rate from SpO2 Sensor 82 82 Respiratory Rate 15 16 Respiratory Effort / Characteristics Non-Labored Respiratory Depth Normal Blood Pressure Blood Pressure Mean Pulse Oximetry 99 98 Oxygen Delivery Method Sepsis Recent Fever Within 48 Hours Sepsis New/Unexplained Change in Mental Status Sepsis Action Taken by Nursing 02/14/25 03:15 02/14/25 03:21 02/14/25 04:13 Temperature Temperature Source Pulse Rate 79 80 119 H Pulse Rate from SpO2 Sensor 80 80 Respiratory Rate 15 17 Respiratory Effort / Characteristics Respiratory Depth Blood Pressure Blood Pressure Mean Pulse Oximetry 98 99 Oxygen Delivery Method Sepsis Recent Fever Within 48 Hours Sepsis New/Unexplained Change in Mental Status Sepsis Action Taken by Nursing Laboratory Data 02/13/25 23:48 02/13/25 23:48 Lab Results 02/13/25 02/14/25 Range/Units 23:48 02:09 WBC 17.21 H (4.8-10.8) K/ul RBC 3.81 L (4.20-5.40) M/uL Hgb 12.4 (12.0-16.0) g/dl Hct 35.1 L (37.0-47.0) % MCV 92.1 (80.0-100.0) fL MCH 32.5 (25.0-34.0) pg MCHC 35.3 (32.0-36.0) g/dL RDW Std Deviation 41.1 (36.4-46.3) fL RDW Coeff of Luisana 12.2 (11.5-14.5) % Plt Count 475 H (130-400) K/uL MPV 8.8 L (9.4-12.4) fL Immature Gran % (Auto) 0.3 % Neut % (Auto) 79.3 % Lymph % (Auto) 15.0 % [place] % (Auto) 5.2 % Eos % (Auto) 0.1 % Baso % (Auto) 0.1 % Neut # (Auto) 13.64 H (1.40-6.50) K/uL Lymph # (Auto) 2.58 (1.20-3.40) K/uL [place] # (Auto) 0.89 H (0.11-0.59) K/uL Eos # (Auto) 0.02 (0.00-0.50) K/uL Baso # (Auto) 0.02 (0.00-0.20) K/uL Immature Gran # (Auto) 0.06 (0.01-0.20) K/uL D-Dimer < 190 (0-500) ug/L FEU Sodium 137 (136-145) mmol/L Potassium 3.2 L (3.5-5.1) mmol/L Chloride 103 (98-107) mmol/L Carbon Dioxide 26 (21-32) mmol/L Anion Gap 8 (3-11) BUN 11 (6-23) mg/dl Creatinine 0.71 (0.6-1.2) mg/dl Est Cr Clr Drug Dosing Not Reportable eGFR 119.44 BUN/Creatinine Ratio 15.5 (10-20) Glucose 139 H (70-99(Fasting)) mg/dl Calcium 9.9 (8.6-10.3) mg/dl Total Bilirubin 0.4 (0.2-1.0) mg/dl AST 71 H (13-39) U/L ALT 47 (7-52) U/L Alkaline Phosphatase 87 (34-104) U/L Troponin I High Sens 2.7 (0-14) pg/ml Total Protein 7.9 (6.0-8.3) gm/dl Albumin 4.2 (3.4-5.0) gm/dl Globulin 3.7 (2.5-4.0) gm/dl Albumin/Globulin Ratio 1.1 (0.9-2) Lipase 26 (11-82) U/L Urine Color Yellow Urine Appearance Clear (Clear) Urine pH 8.0 H (4.5-7.5) Ur Specific [place] 1.008 (1.000-1.030) Urine Protein Negative (Negative) Urine Glucose (UA) Negative (Negative) Urine Ketones Negative (Negative) Urine Blood Negative (Negative) Urine Nitrite Negative (Negative) Urine Bilirubin Negative (Negative) Urine Urobilinogen Negative (Negative) Ur Leukocyte Esterase Trace H (Negative) Urine WBC (Auto) 6-10 H (0-5) /hpf Urine RBC (Auto) 0-2 (0-2) /hpf U Hyaline Cast (Auto) 0-2 (0-2) /lpf U Epithel Cells (Auto) 0-2 (0-2) /hpf Urine Bacteria (Auto) None Seen (None Seen) Urine Comment Administered Medications Dextrose/Sodium Chloride (D5w And 1/2nss) 1,000 mls @ 125 mls/hr IV .Q8H [facility] Stop: 02/17/25 04:52 Last Admin: 02/14/25 06:14 Dose: 125 mls/hr Documented By: MARKOS Ampicillin Sodium/Sulbactam Sodium (Unasyn) 3,000 mg in 100 mls @ 200 mls/hr IV Q6H [facility] Stop: 02/24/25 05:59 Last Infusion: 02/14/25 06:18 Dose: Infused Documented By: Admin: 02/14/25 05:43 Dose: 200 mls/hr Documented By: MARKOS Famotidine (Pepcid 20mg Iv Push) 20 mg in 5 mls @ 2.5 mls/min IV Q12H ARINA Stop: 03/16/25 05:59 Last Admin: 02/14/25 05:42 Dose: 2.5 mls/min Documented By: MARKOS Discontinued Medications Potassium Chloride (Potassium Chloride Pwd 20 Meq Pack) 40 meq PO NOW STA Stop: 02/14/25 04:30 Last Admin: 02/14/25 05:42 Dose: Not Given Documented By: MARKOS Imaging Data Radiologist's Impression: Chest/Abdomen X-ray 02/14/25 00:01 EXAM: XR abdomen 2V w PA chest CLINICAL HISTORY: epigastric pain TECHNIQUE: Chest X-ray: A single view was obtained in the anteroposterior (AP) projection. Abdominal X-ray: Supine and upright abdominal radiographs were obtained. COMPARISON: No prior studies are available for comparison. FINDINGS: Chest: Pulmonary Parenchyma: Both lungs are clear. There is no evidence of consolidation, collapse, focal opacities, or pulmonary nodules. No pleural effusion or pleural thickening is present. Heart and Mediastinum: Cardiac size and contour are within normal limits. There is no mediastinal widening, hilar enlargement, or mediastinal mass. Bony Thorax: The ribs, clavicles, and visualized bony structures appear intact without fracture, lytic, or sclerotic lesions. Soft Tissues: The soft tissues of the chest wall are unremarkable. Abdomen: Gas Pattern: There is normal bowel gas distribution. No dilated small bowel loops or air-fluid levels are identified. Mild fecal loading is noted in the colon. There is no evidence of bowel obstruction or free intraperitoneal air. Soft Tissues: No abnormal soft tissue masses, organomegaly, or pathological calcifications are identified. Bones: Visualized osseous structures are intact without abnormality. IMPRESSION: 1. Normal chest X-ray with no evidence of acute cardiopulmonary abnormality. 2. Mild colonic fecal loading, which may correlate with mild constipation or nonspecific functional delay. 3. Otherwise, normal abdominal X-ray with no evidence of bowel obstruction or free air. Electronically signed by Luis Enrique Esteban 02-14-2025 01:25 AM Gallbladder Ultrasound 02/14/25 01:00 EXAM: US gallbladder CLINICAL HISTORY: Severe epigastric pain. TECHNIQUE: Limited ultrasound of the liver and gallbladder was performed in grayscale and Doppler. Multiple images were obtained in transverse and longitudinal planes. COMPARISON: 02/13/2025 CR reviewed. FINDINGS: Liver: Liver size: Measures 14.4 cm. The liver appears normal in size with homogeneous echotexture. There is no evidence of focal lesions, cysts, or masses. The hepatic vasculature appears normal. Gallbladder: Gallbladder size: The gallbladder is distended and harbors multiple echogenic calculi of varying sizes. One is seen deep within the neck, does not move with positioning, and measures approximately 1.1 cm. No wall thickening (1.9 mm) or pericholecystic fluid is noted. There is no evidence of gallbladder wall edema or signs of acute cholecystitis. Biliary Tree: Common bile duct diameter: Dilated, reaching 7 mm in caliber. The pancreas is not visualized due to overlying gases. Limited views of the right kidney show no hydronephrosis. IMPRESSION: 1. Cholelithiasis with no sonographic evidence of acute cholecystitis. Suspected calculi in the gallbladder neck as per images. 2. Dilated common bile duct reaching 7 mm (normal under 6 mm). Correlation with laboratory bilirubin levels and MRCP if needed is advised to rule out an obstructive cause. Electronically signed by Luis Enrique Esteban 02-14-2025 02:56 AM Discharge Plan Visit Data Chief Complaint: Chest Pain Stated Complaint: SEVERE CHEST/GI PAIN, 3RD OCCURRENCE IN 5 MONTHS ED Provider: Ann Means Discharge Problem: Cholelithiasis, Biliary colic Condition: Serious Discharge Instructions Interventions: ED Discharge Assessment Last Done: 02/14/25 04:53
[2025-02-14 02:22] LABS: Appearance Urine Clear (Clear); Bacteria Urine Automated None Seen (None Seen); Cast Urine Automated 0-2 /lpf (0-2); Epithelial Cell Urine Auto 0-2 /hpf (0-2); Glucose Urine UA Negative (Negative); RBC Urine Automated 0-2 /hpf (0-2)
--- NOTE | 2025-02-14 02:56 | Ultrasound Report ---
EXAM: US gallbladder CLINICAL HISTORY: Severe epigastric pain. TECHNIQUE: Limited ultrasound of the liver and gallbladder was performed in grayscale and Doppler. Multiple images were obtained in transverse and longitudinal planes. COMPARISON: 02/13/2025 CR reviewed. FINDINGS: Liver: Liver size: Measures 14.4 cm. The liver appears normal in size with homogeneous echotexture. There is no evidence of focal lesions, cysts, or masses. The hepatic vasculature appears normal. Gallbladder: Gallbladder size: The gallbladder is distended and harbors multiple echogenic calculi of varying sizes. One is seen deep within the neck, does not move with positioning, and measures approximately 1.1 cm. No wall thickening (1.9 mm) or pericholecystic fluid is noted. There is no evidence of gallbladder wall edema or signs of acute cholecystitis. Biliary Tree: Common bile duct diameter: Dilated, reaching 7 mm in caliber. The pancreas is not visualized due to overlying gases. Limited views of the right kidney show no hydronephrosis. IMPRESSION: 1. Cholelithiasis with no sonographic evidence of acute cholecystitis. Suspected calculi in the gallbladder neck as per images. 2. Dilated common bile duct reaching 7 mm (normal under 6 mm). Correlation with laboratory bilirubin levels and MRCP if needed is advised to rule out an obstructive cause. Electronically signed by Luis Enrique Esteban 02-14-2025 02:56 AM
[2025-02-14] MEDS ORDERED: POLYETHYLENE (MIRALAX) 17 GM PACK PO PRN (04:53)
[2025-02-14] MEDS ORDERED: HYDROmorphone INJ 0.5 MG/0.5 ML SYR IV PRN ×2 (04:53)
[2025-02-14] MEDS ORDERED: ONDANSETRON INJ 2 MG/ML 2 ML VIAL IV PRN (04:53)
--- NOTE | 2025-02-14 04:56 | History & Physical Report ---
Date of Service February 14, 2025 Assessment & Plan (1) Biliary colic: Plan: 28-year-old female unassigned patient German-speaking presents with epigastric abdominal pain. Friend is in the room who is translating for the patient. Family in the room. Around 10 PM last night after eating food in a restaurant she noticed severe pain 10/10 in severity in epigastric region radiating to the back and associated with nausea and shortness of breath. The pain lasted 15 minutes and subsided. But the pain came back again but not as intense when the patient decided to come to the hospital. No fevers. Currently pain improved. Patient had similar episode in July. Denies any headache. No runny nose or sore throat. No cough. No chest pain. No shortness of breath currently. Normal bowel and bladder movements. Denies any blood in the stools or hematuria. Resting comfortably and hemodynamically stable. Biliary colic Currently pain improved LFTs okay except AST 71 Gallbladder ultrasound shows cholelithiasis with no sonographic evidence of acute cholecystitis suspected calcified in gallbladder neck. Dilated CBD measuring 7 mm. Ordered MRCP.MRCP no CBD stone seen Pain control. N.p.o. IV fluids IV Unasyn Repeat labs Surgery consult in a.m. Leukocytosis Will follow repeat labs Antibiotics as above DVT prophylaxis SCDs Disposition Medical floor Full code. History of Present Illness Chief Complaint: Abdominal pain Primary Care Provider: NO PCP 28-year-old female unassigned patient German-speaking presents with epigastric abdominal pain. Friend is in the room who is translating for the patient. Family in the room. Around 10 PM last night after eating food in a restaurant s he noticed severe pain 10/10 in severity in epigastric region radiating to the back and associated with nausea and shortness of breath. The pain lasted 15 minutes and subsided. But the pain came back again but not as intense when the patient decided to come to the hospital. No fevers. Currently pain improved. Patient had similar episode in July. Denies any headache. No runny nose or sore throat. No cough. No chest pain. No shortness of breath currently. Normal bowel and bladder movements. Denies any blood in the stools or hematuria. Resting comfortably and hemodynamically stable. Past medical history. None as per patient Past surgical history. None as per patient Social history. Denies smoking. Denies alcohol use. Family history. Denies any family history. Allergies Allergy/AdvReac Type Severity Reaction Status Date / Time No Known Allergies Allergy Verified 02/14/25 00:21 Home Medications Medication Instructions Recorded Confirmed Type omeprazole 20 mg capsule,delayed 20 mg PO DAILY 4 weeks #28 caps 02/14/25 Rx release Past Med/Surg History Problem List (Updated 02/14/25 @ 06:51 by Ann Means DO) Cholelithiasis (Acute) Biliary colic (Acute) Social History Preferred Language: German Communication Tools: IPad Feels Safe at Home: Yes Review of Systems Review of Systems: All systems reviewed & are unremarkable except as noted in HPI & below Physical Exam Physical Exam: General- Not in distress Head- atraumatic Eyes- PERRL. ENT- oropharynx clear Neck- supple, no JVD. Lungs- clear to auscultation no wheezing or crackles Heart- regular rhythm; no murmur, no gallop. Abdomen- normal bowel sounds, soft, nontender, no distension Extremities- no pretibial edema, no erythema seen Neuro- alert, oriented PERRL, no facial palsy; no dysarthria; moves extremities Results & Data Results & Data Vital Signs (Past 12 Hours) Vital Signs Temp Pulse Resp BP Pulse Ox O2 Del Method 02/14/25 04:13 119 H 02/14/25 03:21 80 17 99 02/14/25 03:15 79 15 98 02/14/25 03:06 82 16 98 02/14/25 02:51 80 15 99 02/14/25 02:45 81 16 98 02/14/25 02:33 88 16 98 02/14/25 02:27 82 20 98 02/14/25 02:12 88 18 99 02/14/25 02:09 92 H 19 02/14/25 01:54 96 H 15 02/14/25 01:30 133/86 02/14/25 01:30 133/86 02/14/25 01:30 133/86 02/14/25 01:24 87 19 99 02/14/25 01:21 96 H 15 98 02/14/25 01:00 118/84 02/14/25 01:00 118/84 02/14/25 01:00 118/84 02/14/25 01:00 94 H 16 99 02/14/25 00:51 87 21 99 02/14/25 00:45 85 19 98 02/14/25 00:30 146/101 H 02/14/25 00:30 146/101 H 02/14/25 00:21 94 H 19 02/14/25 00:03 101 H 02/14/25 00:01 Room Air 02/14/25 00:00 113/76 02/14/25 00:00 113/76 02/13/25 23:53 125/76 02/13/25 23:51 101 H 18 02/13/25 23:35 Room Air 02/13/25 23:28 36.5 C 108 H 18 138/78 100 Room Air Diagnostic Findings Laboratory Results WBC 17.21 K/ul (4.8-10.8) H 02/13/25 23:48 RBC 3.81 M/uL (4.20-5.40) L 02/13/25 23:48 Hgb 12.4 g/dl (12.0-16.0) 02/13/25 23:48 Hct 35.1 % (37.0-47.0) L 02/13/25 23:48 MCV 92.1 fL (80.0-100.0) 02/13/25 23:48 MCH 32.5 pg (25.0-34.0) 02/13/25 23:48 MCHC 35.3 g/dL (32.0-36.0) 02/13/25 23:48 RDW Std Deviation 41.1 fL (36.4-46.3) 02/13/25 23:48 RDW Coeff of [place] 12.2 % (11.5-14.5) 02/13/25 23:48 Plt Count 475 K/uL (130-400) H 02/13/25 23:48 MPV 8.8 fL (9.4-12.4) L 02/13/25 23:48 Immature Gran % (Auto) 0.3 % 02/13/25 23:48 Neut % (Auto) 79.3 % 02/13/25 23:48 Lymph % (Auto) 15.0 % 02/13/25 23:48 [place] % (Auto) 5.2 % 02/13/25 23:48 Eos % (Auto) 0.1 % 02/13/25 23:48 Baso % (Auto) 0.1 % 02/13/25 23:48 Neut # (Auto) 13.64 K/uL (1.40-6.50) H 02/13/25 23:48 Lymph # (Auto) 2.58 K/uL (1.20-3.40) 02/13/25 23:48 [place] # (Auto) 0.89 K/uL (0.11-0.59) H 02/13/25 23:48 Eos # (Auto) 0.02 K/uL (0.00-0.50) 02/13/25 23:48 Baso # (Auto) 0.02 K/uL (0.00-0.20) 02/13/25 23:48 Immature Gran # (Auto) 0.06 K/uL (0.01-0.20) 02/13/25 23:48 D-Dimer < 190 ug/L FEU (0-500) 02/13/25 23:48 Sodium 137 mmol/L (136-145) 02/13/25 23:48 Potassium 3.2 mmol/L (3.5-5.1) L 02/13/25 23:48 Chloride 103 mmol/L (98-107) 02/13/25 23:48 Carbon Dioxide 26 mmol/L (21-32) 02/13/25 23:48 Anion Gap 8 (3-11) 02/13/25 23:48 BUN 11 mg/dl (6-23) 02/13/25 23:48 Creatinine 0.71 mg/dl (0.6-1.2) 02/13/25 23:48 Est Cr Clr Drug Dosing Not Reportable 02/13/25 23:48 eGFR 119.44 02/13/25 23:48 BUN/Creatinine Ratio 15.5 (10-20) 02/13/25 23:48 Glucose 139 mg/dl (70-99(Fasting)) H 02/13/25 23:48 Calcium 9.9 mg/dl (8.6-10.3) 02/13/25 23:48 Total Bilirubin 0.4 mg/dl (0.2-1.0) 02/13/25 23:48 AST 71 U/L (13-39) H 02/13/25 23:48 ALT 47 U/L (7-52) 02/13/25 23:48 Alkaline Phosphatase 87 U/L (34-104) 02/13/25 23:48 Troponin I High Sens 2.7 pg/ml (0-14) 02/13/25 23:48 Total Protein 7.9 gm/dl (6.0-8.3) 02/13/25 23:48 Albumin 4.2 gm/dl (3.4-5.0) 02/13/25 23:48 Globulin 3.7 gm/dl (2.5-4.0) 02/13/25 23:48 Albumin/Globulin Ratio 1.1 (0.9-2) 02/13/25 23:48 Lipase 26 U/L (11-82) 02/13/25 23:48 Urine Color Yellow 02/14/25 02:09 Urine Appearance Clear (Clear) 02/14/25 02:09 Urine pH 8.0 (4.5-7.5) H 02/14/25 02:09 Ur Specific [place] 1.008 (1.000-1.030) 02/14/25 02:09 Urine Protein Negative (Negative) 02/14/25 02:09 Urine Glucose (UA) Negative (Negative) 02/14/25 02:09 Urine Ketones Negative (Negative) 02/14/25 02:09 Urine Blood Negative (Negative) 02/14/25 02:09 Urine Nitrite Negative (Negative) 02/14/25 02:09 Urine Bilirubin Negative (Negative) 02/14/25 02:09 Urine Urobilinogen Negative (Negative) 02/14/25 02:09 Ur Leukocyte Esterase Trace (Negative) H 02/14/25 02:09 Urine WBC (Auto) 6-10 /hpf (0-5) H 02/14/25 02:09 Urine RBC (Auto) 0-2 /hpf (0-2) 02/14/25 02:09 U Hyaline Cast (Auto) 0-2 /lpf (0-2) 02/14/25 02:09 U Epithel Cells (Auto) 0-2 /hpf (0-2) 02/14/25 02:09 Urine Bacteria (Auto) None Seen (None Seen) 02/14/25 02:09 Urine Comment 02/14/25 02:09 Impressions Chest/Abdomen X-ray 02/14/25 00:01 EXAM: XR abdomen 2V w PA chest CLINICAL HISTORY: epigastric pain TECHNIQUE: Chest X-ray: A single view was obtained in the anteroposterior (AP) projection. Abdominal X-ray: Supine and upright abdominal radiographs were obtained. COMPARISON: No prior studies are available for comparison. FINDINGS: Chest: Pulmonary Parenchyma: Both lungs are clear. There is no evidence of consolidation, collapse, focal opacities, or pulmonary nodules. No pleural effusion or pleural thickening is present. Heart and Mediastinum: Cardiac size and contour are within normal limits. There is no mediastinal widening, hilar enlargement, or mediastinal mass. Bony Thorax: The ribs, clavicles, and visualized bony structures appear intact without fracture, lytic, or sclerotic lesions. Soft Tissues: The soft tissues of the chest wall are unremarkable. Abdomen: Gas Pattern: There is normal bowel gas distribution. No dilated small bowel loops or air-fluid levels are identified. Mild fecal loading is noted in the colon. There is no evidence of bowel obstruction or free intraperitoneal air. Soft Tissues: No abnormal soft tissue masses, organomegaly, or pathological calcifications are identified. Bones: Visualized osseous structures are intact without abnormality. IMPRESSION: 1. Normal chest X-ray with no evidence of acute cardiopulmonary abnormality. 2. Mild colonic fecal loading, which may correlate with mild constipation or nonspecific functional delay. 3. Otherwise, normal abdominal X-ray with no evidence of bowel obstruction or free air. Electronically signed by Luis Enrique Esteban 02-14-2025 01:25 AM Gallbladder Ultrasound 02/14/25 01:00 EXAM: US gallbladder CLINICAL HISTORY: Severe epigastric pain. TECHNIQUE: Limited ultrasound of the liver and gallbladder was performed in grayscale and Doppler. Multiple images were obtained in transverse and longitudinal planes. COMPARISON: 02/13/2025 CR reviewed. FINDINGS: Liver: Liver size: Measures 14.4 cm. The liver appears normal in size with homogeneous echotexture. There is no evidence of focal lesions, cysts, or masses. The hepatic vasculature appears normal. Gallbladder: Gallbladder size: The gallbladder is distended and harbors multiple echogenic calculi of varying sizes. One is seen deep within the neck, does not move with positioning, and measures approximately 1.1 cm. No wall thickening (1.9 mm) or pericholecystic fluid is noted. There is no evidence of gallbladder wall edema or signs of acute cholecystitis. Biliary Tree: Common bile duct diameter: Dilated, reaching 7 mm in caliber. The pancreas is not visualized due to overlying gases. Limited views of the right kidney show no hydronephrosis. IMPRESSION: 1. Cholelithiasis with no sonographic evidence of acute cholecystitis. Suspected calculi in the gallbladder neck as per images. 2. Dilated common bile duct reaching 7 mm (normal under 6 mm). Correlation with laboratory bilirubin levels and MRCP if needed is advised to rule out an obstructive cause. Electronically signed by Luis Enrique Esteban 02-14-2025 02:56 AM Code Status & VTE Plan VTE Prophylaxis Plan VTE Prophylaxis will be ordered: Yes
[2025-02-14] MEDS: POTASSIUM CHLORIDE PWD 20 MEQ PACK PO STA (05:42)
[2025-02-14] MEDS: FAMOTIDINE 20MG IV PUSH 20 MG/5 ML SYR IV SCH (05:42)
[2025-02-14] MEDS: AMPICILLIN/SULBACTAM SOD 3,000 MG/100 ML BAG IV SCH (05:43)
[2025-02-14 05:52] VITALS: RESP 16
--- NOTE | 2025-02-14 06:02 | Magnetic Resonance Report ---
EXAM: MR MRCP CLINICAL HISTORY: cholethiasis. bilary colic. dilated cbd TECHNIQUE: Multiplanar and multisequence MRCP of the abdomen was performed without the use of gadolinium. COMPARISON: US dated 02/14/2025 00:58:00 SAND TEMPERER. FINDINGS: The liver is of normal signal intensity, without evidence of a hepatic mass. There is no evidence of intrahepatic biliary ductal dilatation. The gallbladder is distended and demonstrates multiple T2 hypointense calculi measuring 5?10 mm. A hypointense calculus measuring 15 mm is seen in the neck of the gallbladder. The common bile duct is dilated and measures 11 mm in maximum diameter. Limited evaluation of the bowel secondary to peristalsis; however, no definitive abnormality is demonstrated. The adrenal glands demonstrate no gross mass. The pancreas is unremarkable. The kidneys demonstrate no evidence of contour-deforming mass lesion. There is no evidence of upper abdominal ascites or mesenteric mass. IMPRESSION: 1. Cholelithiasis without signs of acute cholecystitis. 2. Dilated common bile duct without any evidence of choledocholithiasis or intrahepatic biliary dilatation. Electronically signed by Jose Del Toro 02-14-2025 06:01 AM
[2025-02-14] MEDS: D5W AND 1/2NSS 1,000 ML IV SCH (06:14)
[2025-02-14] MEDS: POTASSIUM CHLORIDE 20 MEQ/15 ML UDC PO STA (07:24)
[2025-02-14 07:30] LABS: Hematocrit (blood only) 32.8 % (37.0-47.0); Hemoglobin 11.8 g/dl (12.0-16.0); Immature Granulocytes # (auto) 0.02 K/uL (0.01-0.20); Immature Granulocytes % (auto) 0.2 %; Mean Corpuscular Hemoglobin 33.9 pg (25.0-34.0); Mean Corpuscular Volume 94.3 fL (80.0-100.0); Platelet Count 444 K/uL (130-400); RDW Standard Deviation 42.5 fL (36.4-46.3); Red Blood Count 3.48 M/uL (4.20-5.40); White Blood Count 10.12 K/ul (4.8-10.8)
[2025-02-14 07:48] LABS: Alanine Aminotransferase 227 U/L (7-52); Albumin Level 3.9 gm/dl (3.4-5.0); Alkaline Phosphatase 105 U/L (34-104); Anion Gap 7 (3-11); Bilirubin,Total 0.4 mg/dl (0.2-1.0); Blood Urea Nitrogen 10 mg/dl (6-23); Calcium 9.3 mg/dl (8.6-10.3); Carbon Dioxide 24 mmol/L (21-32); Chloride 107 mmol/L (98-107); Glucose 143 mg/dl (70-99(Fasting)); Magnesium 1.8 mg/dl (1.7-2.4); Potassium 3.6 mmol/L (3.5-5.1); Sodium 138 mmol/L (136-145); Total Protein 7.3 gm/dl (6.0-8.3)
--- NOTE | 2025-02-14 10:47 | Discharge Summary ---
Date of Service February 14, 2025 Admission HPI Per Admitting Provider 28-year-old female unassigned patient Bahraini-speaking presents with epigastric abdominal pain. Friend is in the room who is translating for the patient. Family in the room. Around 10 PM last night after eating food in a restaurant she noticed severe pain 10/10 in severity in epigastric region radiating to the back and associated with nausea and shortness of breath. The pain lasted 15 minutes and subsided. But the pain came back again but not as intense when the patient decided to come to the hospital. No fevers. Currently pain improved. Patient had similar episode in July. Denies any headache. No runny nose or sore throat. No cough. No chest pain. No shortness of breath currently. Normal bowel and bladder movements. Denies any blood in the stools or hematuria. Resting comfortably and hemodynamically stable. Past medical history. None as per patient Past surgical history. None as per patient Social history. Denies smoking. Denies alcohol use. Family history. Denies any family history. Admission Exam Per Admitting Provider General- Not in distress Head- atraumatic Eyes- PERRL. ENT- oropharynx clear Neck- supple, no JVD. Lungs- clear to auscultation no wheezing or crackles Heart- regular rhythm; no murmur, no gallop. Abdomen- normal bowel sounds, soft, nontender, no distension Extremities- no pretibial edema, no erythema seen Neuro- alert, oriented PERRL, no facial palsy; no dysarthria; moves extremities Principal Diagnosis Biliary Colic Discharge Exam Constitutional: WD/WN, vitals as above, NAD, sitting up in bed, pleasant, conversing easily Respiratory: normal respiratory effort, lungs clear to auscultation, no wheeze, rales, rhonchi. Normal insp/exp effort, no accessory muscle use Cardiovascular: RRR, no murmur, no edema Vessels: no JVD or carotid bruit Chest: normal inspection of chest Abdomen: soft, non-tender Musculoskeletal: no cyanosis or clubbing, extremities motor strength 5/5 Skin: no rashes, warm and dry normal turgor Neurologic: PERRL, EOMI, accommodation nl, no face palsy, no dysarthria CN's II- XI intact bilaterally and moves all extremities Psychiatric: A+Ox3, euthymic affect Discharge Data Allergies Allergy/AdvReac Type Severity Reaction Status Date / Time No Known Allergies Allergy Verified 02/14/25 00:21 Consultations 02/14/25 03:46 ED Decision to Admit Stat 02/14/25 08:00 Consult General Surgery Routine Ordered Studies 02/14/25 01:00 US gallbladder Stat 02/14/25 04:26 MR MRCP Urgent Hospital Course (1) Biliary colic: 28-year-old female presents with epigastric abdominal pain Patient had severe abdominal pain in epigastric region radiating to the back associated with nausea; the pain lasted for 15 minutes and subsided. Gallbladder ultrasound showed cholelithiasis with no evidence of acute cholecystitis; dilated CBD stone. MRCP was done which did not show any CBD stone. Patient was evaluated by surgery; they recommended outpatient follow-up for possible cholecystectomy. Discussion was done with surgery regarding elevated liver enzymes at the time of the discharge; recommended that patient is safe for discharge and they will follow-up in clinic with repeat LFTs. Patient was discharged home with instructions to follow-up with surgery. Patient was given prescription for omeprazole for possible gastritis. Please note the above document was generated using voice recognition software. It may contain grammatical, syntax or spelling errors. Any formal questions or concerns about the content, text or information contained within the body of this dictation should be directly addressed to the provider for clarification (2) Cholelithiasis: Total Time Total Time Spent Total Time Spent (In Minutes): 45 Total Time Includes: Examination of the Patient, Discharge Planning, Medication Reconciliation, Communication With Other Providers and Other Discharge Plan Discharge Items Patient Disposition: Home - Self-Care Reason For Visit: BILIARY COLIC Discharge Diagnosis: Biliary Colic Condition on Discharge: Fair Activity: Resume your previous activity Non-emergency contact: Primary Care Provider Call non-emergency contact if: you have any medication questions and your symptoms worsen Follow-up/Referrals: Maryam Kramer MD [Surgeon] - (Please call to schedule follow up in the office in 1 week to discuss elective surgery to remove your gallbladder) PCP,NO [Primary Care Provider] - Diet: Low Fat Ambulatory Orders: Comprehensive Metabolic Panel (Routine) Timeframe: 1 Week Location: Determined by Patient Ordered By: Kait Dumont Attending Provider Instructions: You were admitted to the hospital due to abdominal pain. The scans done during the hospitalization showed gallbladder stones. Please stay on a low-fat diet to limit any repeat pain attacks. You have been prescribed omeprazole to be taken once a day for possible gastritis. This can be obtained [id number] as well. Stay on a low fat diet until you follow up with the surgeon to limit any gallbladder attacks. If you have recurrence of abdominal pain, fever and chills; please come back to the hospital as you may need gallbladder surgery. Please go to a [facility] to have blood work for a CMP (to check your liver function tests) to be performed next week prior to your appointment with Dr. Kramer (the general surgeon). You may come to the main hospital entrance and register at the [facility] for this or go to any other [facility] facility with lab capabilities Pending Studies at Discharge: No Stand-Alone Forms: [facility], Smoking Cessation Medications and DC Order Prescriptions: New omeprazole 20 mg capsule,delayed release(DR/EC) 20 mg PO DAILY 28 Days Qty: 28 0RF Discharge Orders: Discharge Order (Routine); Ordered 02/14/25 Ordered By: Kenny Knapp/Other Patient Handouts: Low-Fat Cooking Tips, ED Diet, Low Fat Admission Data Admit Date/Time: 02/14/25 04:26 Attending Provider: Kenny Martinez Admit Provider: Jakob Farias Primary Care Provider: PCP,NO Other Providers: Jakob Farias; Maryam Kramer Other Interventions: Discharge Summary Assessment (RN) Last Done: 02/14/25 11:07
[2025-02-14 11:00] VITALS: BP 104/59; PULSE 64; O2SAT 94
--- NOTE | 2025-02-14 11:08 | Surgery Consultation ---
<Statement entered by Maryam Kramer MD - 02/14/25 14:25> I independently saw the patient and I agree with the assessment and plan of care Date of Consultation February 14, 2025 Assessment & Plan (1) Biliary colic: This is a 28y F with no significant PMH noted who presented to the [facility] ED on 02/14/25 with complaints of upper abdominal pain. She is burmese speaking and her friend helped translate during our conversation. Apparently overnight the patient suffered an attack of pain in the upper abdomen that lasted about 30 minutes. It resolved to only return again and lasted only several minutes the 2nd time and then has since resolved. She reports a similar episode earlier this year. In the ER she underwent a RUQ US that showed cholelithiasis with no sonographic evidence of acute cholecystitis. Suspected calculi in the gallbladder neck and CBD measures 7mm. Follow up with an MRCP showed cholelithiasis without signs of acute cholecystitis. It revealed a dilated common bile duct without any evidence of choledocholithiasis or intrahepatic biliary dilatation. Since arrival to the ER she feels much better. Blood work today shows WBC 10, Hbg 11.8, Tb normal at 0.4. Her LFTs did bump some, AST 236, ALT 237, AlkP 105. Her vitals are stable. On exam patient resting in bed, no distress. She denies pain and abdomen is soft/non tender. Given improvement in symptoms and encouraging imaging findings not revealing acute ann marie or choledocholithiasis we believe it is okay to give her a trial of diet and discharge. Would recommend her continuing on a low fat diet until she is seen by the surgeon. We will also recommend she follow up with us in short order with outpatient blood work for LFTs to ensure they are going down. Would like to see her in the office next week as she will likely continue to have biliary attacks and she should have her gallbladder removed. She should follow up with blood work completed to Dr. Kramer in 1 week. Return precautions if worsening pain, vomiting, etc. (2) Cholelithiasis: History of Present Illness Attending Physician: Kenny Martinez MD History of Present Illness This is a 28y F with no significant PMH noted who presented to the [facility] ED on 02/14/25 with complaints of upper abdominal pain. She is burmese speaking and her friend helped translate during our conversation. Apparently overnight the patient suffered an attack of pain in the upper abdomen that lasted about 30 minutes. It resolved to only return again and lasted only several minutes the 2nd time and then has since resolved. She reports a similar episode earlier this year. In the ER she underwent a RUQ US that showed cholelithiasis with no sonographic evidence of acute cholecystitis. Suspected calculi in the gallbladder neck and CBD measures 7mm. Follow up with an MRCP showed cholelithiasis without signs of acute cholecystitis. It revealed a dilated common bile duct without any evidence of choledocholithiasis or intrahepatic biliary dilatation. Since arrival to the ER she feels much better. She has no family history of gallbladder problems. This episode was associated with some nausea but no emesis or fevers. 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 Feels Safe at Home: Yes Review of Systems Constitutional: no fever and no chills Respiratory: no dyspnea Gastrointestinal: + abdominal pain (upper abdominal) and + nausea; no vomiting and no change in bowel habits Physical Exam Physical Exam: awake, alert, appears in no distress Constitutional: well developed and well nourished Respiratory: normal respiratory effort Gastrointestinal (Abdomen): Inspection/Auscultation: abdomen not distended Percussion/Palpation: abdomen soft; abdomen nontender Results & Data Vital Signs (Past 12 Hours) Vital Signs Temp Pulse Pulse Resp BP BP Pulse Ox 02/14/25 09:00 89 16 110/71 98 02/14/25 08:00 93 H 16 109/55 L 97 02/14/25 05:50 88 16 120/71 99 02/14/25 04:13 119 H 02/14/25 03:21 80 17 99 02/14/25 03:15 79 15 98 02/14/25 03:06 82 16 98 02/14/25 02:51 80 15 99 02/14/25 02:45 81 16 98 02/14/25 02:33 88 16 98 02/14/25 02:27 82 20 98 02/14/25 02:12 88 18 99 02/14/25 02:09 92 H 19 02/14/25 01:54 96 H 15 02/14/25 01:30 133/86 02/14/25 01:30 133/86 02/14/25 01:30 133/86 02/14/25 01:24 87 19 99 02/14/25 01:21 96 H 15 98 02/14/25 01:00 118/84 02/14/25 01:00 118/84 02/14/25 01:00 118/84 02/14/25 01:00 94 H 16 99 02/14/25 00:51 87 21 99 02/14/25 00:45 85 19 98 02/14/25 00:30 146/101 H 02/14/25 00:30 146/101 H 02/14/25 00:21 94 H 19 02/14/25 00:03 101 H 02/14/25 00:01 02/14/25 00:00 113/76 02/14/25 00:00 113/76 02/13/25 23:53 125/76 02/13/25 23:51 101 H 18 02/13/25 23:35 02/13/25 23:28 97.7 F 108 H 18 138/78 100 O2 Del Method 02/14/25 09:00 Room Air 02/14/25 08:00 Room Air 02/14/25 05:50 Room Air 02/14/25 04:13 02/14/25 03:21 02/14/25 03:15 02/14/25 03:06 02/14/25 02:51 02/14/25 02:45 02/14/25 02:33 02/14/25 02:27 02/14/25 02:12 02/14/25 02:09 02/14/25 01:54 02/14/25 01:30 02/14/25 01:30 02/14/25 01:30 02/14/25 01:24 02/14/25 01:21 02/14/25 01:00 02/14/25 01:00 02/14/25 01:00 02/14/25 01:00 02/14/25 00:51 02/14/25 00:45 02/14/25 00:30 02/14/25 00:30 02/14/25 00:21 02/14/25 00:03 02/14/25 00:01 Room Air 02/14/25 00:00 02/14/25 00:00 02/13/25 23:53 02/13/25 23:51 02/13/25 23:35 Room Air 02/13/25 23:28 Room Air Diagnostic Findings EXAM: US gallbladder CLINICAL HISTORY: Severe epigastric pain. TECHNIQUE: Limited ultrasound of the liver and gallbladder was performed in grayscale and Doppler. Multiple images were obtained in transverse and longitudinal planes. COMPARISON: 02/13/2025 CR reviewed. FINDINGS: Liver: Liver size: Measures 14.4 cm. The liver appears normal in size with homogeneous echotexture. There is no evidence of focal lesions, cysts, or masses. The hepatic vasculature appears normal. Gallbladder: Gallbladder size: The gallbladder is distended and harbors multiple echogenic calculi of varying sizes. One is seen deep within the neck, does not move with positioning, and measures approximately 1.1 cm. No wall thickening (1.9 mm) or pericholecystic fluid is noted. There is no evidence of gallbladder wall edema or signs of acute cholecystitis. Biliary Tree: Common bile duct diameter: Dilated, reaching 7 mm in caliber. The pancreas is not visualized due to overlying gases. Limited views of the right kidney show no hydronephrosis. IMPRESSION: 1. Cholelithiasis with no sonographic evidence of acute cholecystitis. Suspected calculi in the gallbladder neck as per images. 2. Dilated common bile duct reaching 7 mm (normal under 6 mm). Correlation with laboratory bilirubin levels and MRCP if needed is advised to rule out an obstructive cause. Electronically signed by Luis Enrique Esteban 02-14-2025 02:56 AM EXAM: MR MRCP CLINICAL HISTORY: cholethiasis. bilary colic. dilated cbd TECHNIQUE: Multiplanar and multisequence MRCP of the abdomen was performed without the use of gadolinium. 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 FINDINGS: The liver is of normal signal intensity, without evidence of a hepatic mass. There is no evidence of intrahepatic biliary ductal dilatation. The gallbladder is distended and demonstrates multiple T2 hypointense calculi measuring 5?10 mm. A hypointense calculus measuring 15 mm is seen in the neck of the gallbladder. The common bile duct is dilated and measures 11 mm in maximum diameter. Limited evaluation of the bowel secondary to peristalsis; however, no definitive abnormality is demonstrated. The adrenal glands demonstrate no gross mass. The pancreas is unremarkable. The kidneys demonstrate no evidence of contour-deforming mass lesion. There is no evidence of upper abdominal ascites or mesenteric mass. IMPRESSION: 1. Cholelithiasis without signs of acute cholecystitis. 2. Dilated common bile duct without any evidence of choledocholithiasis or intrahepatic biliary dilatation. Electronically signed by Jose Del Toro 02-14-2025 06:01 AM PG Care Time/CCT Total # of Minutes Spent Total Time Spent with Patient: Total time spent is greater than 50% in coordination of care (as documented) at patient's floor/unit and/or counseling patient: Coding Level of Care Code 07686 OFFICE CONSULT LVL Diagnoses Biliary colic K80.50 Cholelithiasis K80.20
--- NOTE | 2025-02-15 18:58 | Electrocardiogram Report ---
Test Reason : Blood Pressure : */* mmHG Vent. Rate : 104 BPM Atrial Rate : 104 BPM P-R Int : 138 ms QRS Dur : 90 ms QT Int : 344 ms P-R-T Axes : 46 83 16 degrees QTcB Int : 452 ms Sinus tachycardia Otherwise normal ECG No previous ECGs available Confirmed by Benedicto Prakash ([id number]) on 02/15/2025 6:58:29 PM Referred By: REFERRED SELF Confirmed By: Benedicto Prakash
== END 2025-02-14 11:30 | disposition home or self-care (01) | DRG 446 ==
LOC: EDBD → ED 23:22 → MERGE 02-14 04:26 → EDINP 02-14 04:26
DX: K80.70 Calculus of gallbladder and bile duct without cholecystitis without obstruction